=== PATIENT | female | born 1995 | race Two or more races ===

== ENCOUNTER 2021-05-26 10:43 | Emergency (ER) | payer MEDICAID, OTHER ==
[~2021-05-26] VITALS: Ht 177.8 cm; Wt 90.7 kg
[~2021-05-26 10:43] MED LIST: pro air
[2021-05-26 10:53] VITALS: BP 97/66
[2021-05-26] MEDS ORDERED: DEXAMETHASONE SOD PHOSPHATE 10 MG/ML VIAL ONE (11:29)
[2021-05-26] MEDS ORDERED: KETOROLAC TROMETHAMINE INJ 30 MG/ML VIAL ONE (11:29)
[2021-05-26] MEDS ORDERED: PENICILLIN G BENZATHINE 2.4 MMU/4 ML ML IM ONE ×2 (11:29→11:30)
[2021-05-26] MEDS ORDERED: DEXAMETHASONE 4 MG TABLET ONE (11:30)
[2021-05-26] MEDS ORDERED: KETOROLAC TROMETHAMINE INJ 60 MG/2 ML VIAL IM ONE (11:30)
[2021-05-26] MEDS ORDERED: DEXAMETHASONE SOLN 5 MG/5 ML UDC PO ONE (11:30)
[2021-05-26] MEDS ORDERED: AMOX500C2 PO (11:57)
--- NOTE | 2021-05-26 12:33 | NUR ---
Patient discharged to home in stable condition. Written and verbal after care instructions given. Patient verbalizes understanding of instruction.
== END 2021-05-26 12:32 | disposition home or self-care (01) ==
LOC: ER 10:43
DX: J02.9 Acute pharyngitis, unspecified (principal); J45.909 Unspecified asthma, uncomplicated
CPT/HCPCS: 96372; 99283; J0558; J1885; J8540; J1100

== ENCOUNTER 2024-03-10 21:59 | Emergency (ER) | payer MEDICAID, OTHER ==
[~2024-03-10] VITALS: Ht 177.8 cm; Wt 95.3 kg
[~2024-03-10 21:59] MED LIST changes: +AMOX500C2 PO
[2024-03-10 22:25] VITALS: BP 119/69; TEMP 97.8; O2SAT 98
[2024-03-10] MEDS ORDERED: AMOX-430 PO (22:43)
== END 2024-03-10 23:02 | disposition home or self-care (01) ==
LOC: ER 22:01
DX: J32.9 Chronic sinusitis, unspecified (principal); J45.909 Unspecified asthma, uncomplicated; H92.03 Otalgia, bilateral

== ENCOUNTER 2024-12-27 18:41 | Emergency (ER) | payer OTHER ==
[~2024-12-27] VITALS: Ht 177.8 cm; Wt 93.0 kg
[~2024-12-27 18:41] MED LIST changes: +AMOX-430 PO
[2024-12-27] MEDS ORDERED: predniSONE 20 MG TABLET ONE (20:22)
[2024-12-27] MEDS: predniSONE 20 MG TABLET PO ONE (20:25)
[2024-12-27] MEDS ORDERED: ALBUTEROL FS 2.5 MG/3 ML VIAL.NEB ONE (21:02)
[2024-12-27 21:08] VITALS: O2SAT 97
[2024-12-27] MEDS: IPRATROPIUM NEB FS 0.5 MG/2.5 ML AMPUL.NEB NEB ONE (21:08)
[2024-12-27] MEDS: ALBUTEROL FS 2.5 MG/3 ML VIAL.NEB NEB ONE (21:08)
[2024-12-27 21:16] VITALS: O2SAT 99
[2024-12-27] MEDS ORDERED: ALBU8.5H8 INH (22:39)
[2024-12-27] MEDS ORDERED: PRED50TA PO (22:39)
[2024-12-27 22:55] VITALS: BP 114/84; TEMP 98.3; O2SAT 94
== END 2024-12-27 22:55 | disposition home or self-care (01) ==
LOC: ER 18:45
DX: J45.901 Unspecified asthma with (acute) exacerbation (principal); R06.02 Shortness of breath; F17.200 Nicotine dependence, unspecified, uncomplicated; Z91.048 Other nonmedicinal substance allergy status; Z79.52 Long term (current) use of systemic steroids
CPT/HCPCS: 71045-TC